=== PATIENT | female | born 1950 | race Caucasian/White ===

== ENCOUNTER 2022-09-25 12:46 | Outpatient (REF) | payer MEDICARE, BC, SELFPAY ==
[2022-09-25 15:10] LABS: Anion Gap 8.1 mmol/L (3-11); BUN 14 mg/dL (7-18); CO2 25.9 mmol/L (21.0-32.0); Calcium 9.2 mg/dL (8.5-10.1); Chloride 107 mmol/L (98-107); Estimated GFR 60.61 (mL/min/1.73m2); Glucose 114 mg/dL (74-106); Potassium 4.5 mmol/L (3.5-5.1); Sodium 141 mmol/L (136-145)
== END 2022-09-25 12:47 | disposition home or self-care (01) ==
LOC: NCHCN 12:46
PROVIDERS: Visit Provider Registered Nurse
DX: I10 Essential (primary) hypertension (principal)
CPT/HCPCS: 80048

== ENCOUNTER 2023-05-26 22:02 | Outpatient (REF) | payer MEDICARE, BC, SELFPAY ==
[2023-05-26 22:15] LABS: Abs Immature Grans 0.01 10^3/uL (0.0-0.06); Absolute Basophil Count 0.02 10^3/uL (0.0-0.2); Absolute Eosinophil Count 0.02 10^3/uL (0.0-0.7); Absolute Lymphocyte Count 0.96 10^3/uL (1.2-3.4); Absolute Monocyte Count 0.51 10^3/uL (0.1-0.8); Absolute Neutrophil Count 3.34 10^3/uL (1.2-6.7); Basophils % 0.4; Eosinophils % 0.4; HCT 45.4 % (36.0-46.0); HGB 15.4 g/dL (11.2-15.7); Immature Grans % 0.2; Lymphocytes % 19.8; MCH 32.7 pg (27.0-33.0); MCHC 33.9 % (32.0-36.0); MCV 96 fL (80-95); MPV 10.1 fL (8.0-11.0); Monocytes % 10.5; Neutrophils % 68.7; Platelet Count 182 10^3/uL (130-400); RBC 4.71 10^6/uL (3.93-5.22); RDW 13.2 % (11.7-14.6); RDW-SD 46.1 fL; WBC 4.86 10^3/uL (4.4-10.8)
[2023-05-26 23:03] LABS: ALT 121 U/L (14-59); AST 101 U/L (15-37); Alkaline Phosphatase 97 U/L (46-116); Anion Gap 11.5 mmol/L (3-11); BUN 12 mg/dL (7-18); Bilirubin, Total 0.7 mg/dL (0.2-1.0); CO2 27.5 mmol/L (21.0-32.0); CREATININE 1.2 mg/dL (0.55-1.02); Calcium 11.3 mg/dL (8.5-10.1); Chloride 99 mmol/L (98-107); Estimated GFR 48.39 (mL/min/1.73m2); Glucose 117 mg/dL (74-106); Magnesium 1.9 mg/dL (1.8-2.4); Potassium 4.1 mmol/L (3.5-5.1); Sodium 138 mmol/L (136-145); Total Protein 7.6 g/dL (6.4-8.2); Vitamin B12 1524 pg/mL (193-986)
[2023-05-27 10:35] LABS: Hemoglobin A1C 5.2 % (<5.7)
[2023-05-27 10:43] LABS: PHOSPHORUS 3.7 mg/dL (2.6-4.7)
[2023-05-27 10:53] LABS: Vitamin D 25 Total 68.4 ng/mL (30-100)
== END 2023-05-26 22:03 | disposition home or self-care (01) ==
LOC: NCHCN 22:02
PROVIDERS: Visit Provider Nurse Practitioner Family
DX: R73.09 Other abnormal glucose (principal); E83.52 Hypercalcemia; R13.10 Dysphagia, unspecified; I10 Essential (primary) hypertension; E53.8 Deficiency of other specified B group vitamins
CPT/HCPCS: 80053; 82306; 82607; 83036; 83735; 84100; 84443; 85025

== ENCOUNTER 2023-06-29 14:19 | Outpatient (REF) | payer MEDICARE, BC, SELFPAY ==
[2023-06-29 17:56] LABS: ALT 49 U/L (14-59); AST 43 U/L (15-37); Albumin 3.7 g/dL (3.4-5.0); Alkaline Phosphatase 75 U/L (46-116); BUN 15 mg/dL (7-18); Bilirubin, Total 0.4 mg/dL (0.2-1.0); Calcium 9.5 mg/dL (8.5-10.1); Chloride 107 mmol/L (98-107); Estimated GFR 60.23 (mL/min/1.73m2); Glucose 114 mg/dL (74-106); Sodium 142 mmol/L (136-145)
== END 2023-06-29 14:20 | disposition home or self-care (01) ==
LOC: NCHCN 14:19
PROVIDERS: PCP Nurse Practitioner Family; Visit Provider Nurse Practitioner Family
DX: I10 Essential (primary) hypertension (principal); R74.01 Elevation of levels of liver transaminase levels; R13.10 Dysphagia, unspecified; D51.9 Vitamin B12 deficiency anemia, unspecified; M25.552 Pain in left hip
CPT/HCPCS: 80053

== ENCOUNTER 2024-10-25 15:24 | Outpatient (REF) | payer MEDICARE, BC, SELFPAY ==
[2024-10-25 21:34] LABS: HGB 13.8 g/dL (11.2-15.7); MCH 32.1 pg (27.0-33.0); MCHC 33.7 % (32.0-36.0); MCV 95 fL (80-95); MPV 10.2 fL (8.0-11.0); Platelet Count 235 10^3/uL (130-400); RDW 13.1 % (11.7-14.6); RDW-SD 45.3 fL; WBC 5.55 10^3/uL (4.4-10.8)
[2024-10-25 21:39] LABS: ALT 26 U/L (14-59); AST 20 U/L (15-37); Albumin 3.3 g/dL (3.4-5.0); Alkaline Phosphatase 110 U/L (46-116); Anion Gap 6.7 mmol/L (3-11); BUN 21 mg/dL (7-18); Bilirubin, Total 0.28 mg/dL (0.2-1.0); CO2 27.3 mmol/L (21.0-32.0); Calcium 8.7 mg/dL (8.5-10.1); Calculated LDL 91 mg/dL (<100); Chloride 110 mmol/L (98-107); Cholesterol 169 mg/dL (<200); Estimated GFR 59.86 (mL/min/1.73m2); Glucose 143 mg/dL (74-106); HDL Cholesterol 65 mg/dL (40-60); Potassium 4.1 mmol/L (3.5-5.1); Sodium 144 mmol/L (136-145); Total Protein 6.6 g/dL (6.4-8.2); Triglyceride 67 mg/dL (<150)
[2024-10-25 22:02] LABS: Hemoglobin A1C 5.4 % (<5.7)
== END 2024-10-25 15:25 | disposition home or self-care (01) ==
LOC: NCHCN 15:24
PROVIDERS: PCP Nurse Practitioner Family; Visit Provider Nurse Practitioner Family
DX: Z00.00 Encounter for general adult medical examination without abnormal findings (principal)
CPT/HCPCS: 80053; 80061; 85027; 83036